=== PATIENT | male | born 2000 | race Caucasian/White ===

== ENCOUNTER 2024-12-13 01:20 | Emergency (ER) | payer SELFPAY ==
[2024-12-13 01:25] VITALS: BP 128/86
--- NOTE | 2024-12-13 02:03 | ED.SKININJ ---
HPI-Injury
General
Chief Complaint: Skin Surface Trauma
Source: patient
Exam Limitations: none
Time Seen by Provider: 12/13/24 01:49
Nursing documentation reviewed up to this point in time: agreed with
History of Present Illness-Injury
Is this injury a work related problem?: Yes
Is pt an associate of [facility]/[place]?: No
Initial Injury comments:
Accidentally cut self with knife. He has a small cut to right distal index finger. Injuryoccurred just [employer]
Past History
Past History
ED Past Medical History: Asthma, Psychiatric (Anxiety/depression), Other (Seasonal allergies) and Other (Migraine headaches)
ED Past Surgical History: None
Patient has exhibited threatening behavior?: No
Social History
Tobacco: Non-smoker
Alcohol: None
Drug: None
Personal: Single
Living: with family
Employment: Employed (Works at [employer] in [place])
Family History
Family History: CAD (Maternal grandmother with LA at 59, no young cardiac , father with history of heavy tobacco use and narcotic abuse with history of CHF and pacemaker. He has 3 siblings who are all alive and well.)
Review of Systems
Review of Systems
Allergies reviewed?: Yes
All Other Systems: ROS reviewed and negative except as documented in HPI and ROS
Constitutional: Reports no symptoms
Musculoskeletal: Reports no symptoms
Skin: Reports other (Laceration to left distal index finger)
Neurological: Reports no symptoms
Psychiatric: Reports no symptoms
Skin Exam
Laceration
Right Distal Second Finger:
Length in cm: 0.5
Orientation: horizontal
Type of Laceration: simple
Any active bleeding?: no active bleeding
Distal skin color and temperature: normal-warm & good color
Normal distal neurovascular exam: Yes
Range of motion: full
Phy Exam
General Physical Exam
General Presentation: well appearing and no apparent distress
General age: appears stated age
General Skin: warm and dry
General Habitus: normal
General Mental: alert
General Hydration: appears well hydrated
Musculoskeletal Exam
Musculoskeletal Exam: full ROM and neuro vasc intact
Skin Exam
Skin Exam: normal color, warm/dry and no rash
Psychiatric Exam
Psychiatric Exam: normal mood/affect
Course
Orders/Labs/Results
Orders:
Orders
12/13/24 02:02
Tetanus/Diphth/Acelpertussis [Adacel] 0.5 ml IM .ONCE ONE
Vital Signs
Initial and Last Documented VS:
Initial Vital Signs
Temp Pulse Resp BP Pulse Ox
98.4 F 86 14 128/86 96
12/13/24 01:25 12/13/24 01:25 12/13/24 01:25 12/13/24 01:25 12/13/24 01:25
Last Documented Vital Signs
Temp Pulse Resp BP Pulse Ox
98.4 F 70 16 128/86 96
12/13/24 01:25 12/13/24 02:23 12/13/24 02:23 12/13/24 01:25 12/13/24 02:04
Procedures
Laceration Closure
Right Distal Second Finger:
Status of Wound: clean
Description of Wound Edges: sharp
Preparation: cleaned with saline and cleaned with Betadine
Revision/Debridement: routine- no revision
Wound exploration: explored to base- no FB and no tendon involvement
Type of Closure: Dermabond-skin glue
*Pulse Oximetry
SaO2: 96
Oxygen Mode of Delivery: Room air
Patient hypoxic: no
*Critical Care Note
Total Time (30-74mins, 75-104mins- exclusive of procedures): Not Applicable
ED Attending Note
-
Portions of this chart may have been created with voice recognition software.� Occasional wrong word or��sound alike� substitutions may have occurred due to the inherent limitations of voice recognition software.
Discharge Plan
Departure
Patient Disposition: Home (Routine Discharge)
Date of Disposition: 12/13/24
Time of Disposition: 02:02
Patient with high blood pressure during this ER visit?: No
Condition: Good
Covid-19: Not Applicable
Discharge Problem:
Finger laceration
Instructions: Laceration Repair With Glue (DC)
Prescriptions:
No Action
Claritin:
10 mg PO DAILY
triamcinolone acetonide [Nasacort] 10.8 ML aerosol,spray
10.8 ml NS DAILY PRN (Reason: allergies)
Referrals:
NONE,* [Family Provider, Internal Medicine]
Activity Restrictions/Additional Instructions:
Keep wound dry. Do not remove tape strips
Interventions
Interventions:
*Risk Screen - Suicide Last Done: 12/13/24 01:21
*General Assessment Last Done: 12/13/24 01:21
*Neglect/Abuse Screening Last Done: 12/13/24 01:21
*ED- Fall Risk Assessment Last Done: 12/13/24 02:11
*ED COVID-19 Vaccine History Last Done: 12/13/24 02:11
*ED Influenza Vaccine History Last Done: 12/13/24 02:11
*Nursing Disposition Last Done: 12/13/24 02:23
ED-Skin Assessment Last Done: 12/13/24 01:55
Discharge Date and Time
Discharge Date/Time: 12/13/24 02:24
Print Language: COMORAN
[2024-12-13] MEDS: ADACEL 0.5 ML IM (02:10)
== END 2024-12-13 02:24 | disposition home or self-care (01) ==
LOC: EMR 01:20
PROVIDERS: EMERGENCY PHYSICIAN Student in an Organized Health Care Education/Training Program
DX: S61.210A Laceration without foreign body of right index finger without damage to nail, initial encounter (principal); W26.0XXA Contact with knife, initial encounter; Z23 Encounter for immunization
CPT/HCPCS: 12001; 90471; 99282; 90715